=== PATIENT | female | born 1955 | race Caucasian/White ===

== ENCOUNTER 2016-09-20 16:25 | Emergency (ER) | payer OTHER, MEDICAID ==
[2016-09-20] MEDS ORDERED: NS 1,000 ML IV ONE (17:00)
--- NOTE | 2016-09-20 17:00 | EDPHY ---
H & P Stated Complaint: increased wandering and restless over past 2 weeks, hx dementia- HPI/ROS: HPI CHIEF COMPLAINT: Frontal lobe dementia, increased wondering, increased agitation HISTORY OF PRESENT ILLNESS: This patient very pleasant 61-year-old female she is followed outpatient by primary care doctor as well as neurologist or primary care doctor's at [facility], she presents emergency room with her and best friend at bedside for increased agitation and increased wondering leaving her house today. She left her house twice today. Her was unable to control her. She has frontal lobe dementia. She is followed by Neurology and primary care doctor. They brought her to the emergency room because there at a loss of what else to further due for her. In the emergency room she is demented , she has, cooperative. She does answer my questions but does not give a reliable answers. She denies any focal complaints. Past Medical History: For frontal lobe dementia, history of UTIs Past Surgical History: No recent surgical history Social History: Lives in [place], at bedside, best friend at bedside Family History: Noncontributory ROS REVIEW OF SYSTEMS: A comprehensive 10 point review of systems is otherwise negative aside from elements mentioned in the history of present illness. Exam Constitutional triage nursing summary reviewed, vital signs reviewed, awake/ alert. Frontal lobe dementia. Eyes normal conjunctivae and sclera, EOMI, PERRLA. HENT normal inspection, atraumatic, moist mucus membranes, no epistaxis, neck supple/ no meningismus, no raccoon eyes. Respiratory clear to auscultation bilaterally, normal breath sounds, no respiratory distress, no wheezing. Cardiovascular rate normal, regular rhythm, no murmur, no edema, distal pulses normal. Gastrointestinal soft, non-tender, no rebound, no guarding, normal bowel sounds, no distension, no pulsatile mass. Genitourinary no CVA tenderness. Musculoskeletal no midline vertebral tenderness, full range of motion, no calf swelling, no tenderness of extremities, no meningismus, good pulses, neurovascularly intact. Skin pink, warm, & dry, no rash, skin atraumatic. Neurologic awake and alert and oriented x1 at neurological baseline , moves all 4 extremities equally, motor intact, sensory intact, CN II-XII intact, normal cerebellar, normal vision, normal speech. Psychiatric normal mood/affect. Heme/Lymph/Immune no lymphadenopathy. Differential Diagnosis: Worsening frontal lobe dementia, agitation, electrolyte disturbance, dehydration, UTI Medical Decision Making: Plan for this patient check basic blood work including electrolytes, check urinalysis to make sure there is not exacerbating her agitation increased wondering in the setting on a frontal lobe dementia. Re-evaluation: 2011: Patient is resting comfortably here no acute distress. Did receive 1 mg p.o. Ativan. Blood work is reassuring, electrolytes reassuring. Urinalysis reassuring. Will outpatient be discharged. Case management did give resources to this family. They understand return emergency room if they have any worsening symptoms questions or concerns. Source: Patient - Personal History Current Tetanus/Diphtheria Vaccine: Unsure Current Tetanus Diphtheria and Acellular Pertussis (TDAP): Unsure - Medical/Surgical History Hx Asthma: No Hx Chronic Respiratory Disease: No Hx Diabetes: No Hx Cardiac Disease: No Hx Renal Disease: No Hx Cirrhosis: No Hx Alcoholism: No Hx HIV/AIDS: No Hx Splenectomy or Spleen Trauma: No Other PMH: Factor V, PE's, Dementia, HTN, Depression, Hypothyroid - Social History Smoking Status: Former smoker Constitutional: Initial Vital Signs Temperature (C) 36.5 C 09/20/16 16:39 Heart Rate 76 09/20/16 16:39 Respiratory Rate 16 09/20/16 16:39 Blood Pressure 152/65 H 09/20/16 16:39 O2 Sat (%) 98 09/20/16 16:39 O2 Delivery Mode Room Air Allergies/Adverse Reactions: No Known Allergies Allergy (Unverified 12/24/14 12:03) Home Medications: Medication Instructions Recorded Donepezil HCl [Aricept] 10 mg PO DAILY 12/24/14 Levothyroxine [Synthroid 75 mcg 75 mcg PO DAILY06 12/24/14 (*)] Metoprolol Succinate Xr [Toprol Xl 50 mg PO DAILY 12/24/14 50 mg (*)] Vilazodone HCl [Viibryd] 40 mg PO DAILY 12/24/14 Warfarin Sodium [Coumadin 3MG (*)] 3 mg PO DAILY 12/24/14 buPROPion SR [Wellbutrin 150mg SR 150 mg PO BID 12/24/14 (*)] Acetaminophen [Tylenol 325mg (*)] 325 - 650 mg PO Q6 PRN #60 tab 01/01/15 Docusate Sodium [Colace 100 MG (*)] 100 mg PO BID #60 cap 01/01/15 HYDROcodone/APAP 10325 [[place] 1 - 2 tab PO Q6 PRN #120 tab 01/01/15325 (*)] celeCOXIB [Celebrex (*)] 200 mg PO DAILY #20 cap 01/01/15 oxyCODONE IR [Oxycodone Ir (*)] 5 mg PO Q6 PRN #30 tab 01/01/15 Medical Decision Making - Data Points Laboratory Results: Laboratory Results 09/20/16 17:30 09/20/16 17:30 09/20/16 09/20/16 09/20/16 19:30 17:30 17:30 WBC 6.78 10^3/uL 10^3/uL (3.80-9.50) RBC 5.40 10^6/uL H 10^6/uL (4.18-5.33) Hgb 16.9 g/dL H g/dL (12.6-16.3) Hct 49.0 % H % (38.0-47.0) MCV 90.7 fL fL (81.5-99.8) MCH 31.3 pg pg (27.9-34.1) MCHC 34.5 g/dL g/dL (32.4-36.7) RDW 12.4 % % (11.5-15.2) Plt Count 189 10^3/uL 10^3/uL (150-400) MPV 11.6 fL fL (8.7-11.7) Neut % (Auto) 58.3 % % (39.3-74.2) Lymph % (Auto) 33.0 % % (15.0-45.0) Reynolds % (Auto) 5.6 % % (4.5-13.0) Eos % (Auto) 2.1 % % (0.6-7.6) Baso % (Auto) 0.9 % % (0.3-1.7) Nucleat RBC Rel Count 0.0 % % (0.0-0.2) Absolute Neuts (auto) 3.95 10^3/uL 10^3/uL (1.70-6.50) Absolute Lymphs (auto) 2.24 10^3/uL 10^3/uL (1.00-3.00) Absolute Monos (auto) 0.38 10^3/uL 10^3/uL (0.30-0.80) Absolute Eos (auto) 0.14 10^3/uL 10^3/uL (0.03-0.40) Absolute Basos (auto) 0.06 10^3/uL 10^3/uL (0.02-0.10) Absolute Nucleated RBC 0.00 10^3/uL 10^3/uL (0-0.01) Immature Gran % 0.1 % % (0.0-1.1) Immature Gran # 0.01 10^3/uL 10^3/uL (0.00-0.10) Sodium 143 mEq/L mEq/L (134-144) Potassium 4.3 mEq/L mEq/L (3.5-5.2) Chloride 105 mEq/L mEq/L (97-110) Carbon Dioxide 22 mEq/l mEq/l (22-31) Anion Gap 16 mEq/L mEq/L (8-16) BUN 13 mg/dL mg/dL (7-23) Creatinine 0.8 mg/dL mg/dL (0.6-1.0) Estimated GFR > 60 Glucose 85 mg/dL mg/dL (70-100) Calcium 10.1 mg/dL mg/dL (8.5-10.4) Specimen Hemolysis 103 Urine Color PALE YELLOW Urine Appearance CLEAR Urine pH 7.0 (5.0-7.5) Ur Specific [place] 1.002 (1.002-1.030) Urine Protein NEGATIVE (NEGATIVE) Urine Ketones NEGATIVE (NEGATIVE) Urine Blood NEGATIVE (NEGATIVE) Urine Nitrate NEGATIVE (NEGATIVE) Urine Bilirubin NEGATIVE (NEGATIVE) Urine Urobilinogen NEGATIVE EU EU (0.2-1.0) Ur Leukocyte Esterase NEGATIVE (NEGATIVE) Urine Glucose NEGATIVE (NEGATIVE) Medications Given: Discontinued Medications Sodium Chloride (Ns) 1,000 mls @ 0 mls/hr IV ONCE ONE; Wide Open PRN Reason: Protocol Stop: 09/20/16 17:01 Last Admin: 09/20/16 17:42 Dose: 1,000 mls Lorazepam (Ativan) 1 mg PO EDNOW ONE Stop: 09/20/16 18:23 Last Admin: 09/20/16 18:23 Dose: 1 mg Departure - Departure Disposition: Home, Routine, Self-Care Clinical Impression: Dementia Qualifiers: Dementia type: unspecified type Dementia behavioral disturbance: with behavioral disturbance Qualified Code(s): F03.91 - Unspecified dementia with behavioral disturbance Condition: Good Instructions: Dementia (ED) Referrals: Patient,NotPresent [Unknown] - As per Instructions
[2016-09-20 17:58] LABS: % IMMATURE GRANULYOCYTES 0.1 % (0.0-1.1); ABSOLUTE IMMATURE GRANULOCYTES 0.01 10^3/uL (0.00-0.10); ADD DIFF? NO; ADD MORPH? NO; ADD SCAN? NO; ATYPICAL LYMPHOCYTE FLAG 0 (0-99); FRAGMENT RBC FLAG 0 (0-99); HEMOGLOBIN 16.9 g/dL (12.6-16.3); LEFT SHIFT FLG 0 (0-99); LIPEMIA HEMOLYSIS FLAG 90 (0-99); MEAN CELL HEMOGLOBIN 31.3 pg (27.9-34.1); MEAN CELL HEMOGLOBIN CONCENTR. 34.5 g/dL (32.4-36.7); MEAN CELL VOLUME 90.7 fL (81.5-99.8); MEAN PLATELET VOLUME 11.6 fL (8.7-11.7); PLATELET CLUMPS FLAG 20 (0-99); PLATELET COUNT 189 10^3/uL (150-400); RED CELL DISTRIBUTION WIDTH 12.4 % (11.5-15.2)
[2016-09-20 18:06] LABS: ANION GAP 16 mEq/L (8-16); CALCIUM 10.1 mg/dL (8.5-10.4); CARBON DIOXIDE 22 mEq/l (22-31); CHLORIDE 105 mEq/L (97-110); CREATININE 0.8 mg/dL (0.6-1.0); GLOMERULAR FILTRATION RATE > 60; GLUCOSE 85 mg/dL (70-100); POTASSIUM 4.3 mEq/L (3.5-5.2); SODIUM 143 mEq/L (134-144); SPECIMEN HEMOLYSIS 103
[2016-09-20] MEDS ORDERED: LORazepam 1 MG TAB ONE (18:17)
[2016-09-20] MEDS ORDERED: LORazepam 1 MG TAB PO ONE (18:22)
[2016-09-20 19:51] LABS: COLOR PALE YELLOW; LEUKOCYTE ESTERASE,URINE NEGATIVE (NEGATIVE); NITRITE,URINE NEGATIVE (NEGATIVE)
[2016-09-20 20:51] VITALS: BP 192/120; PULSE 78; RESP 18; TEMP 98.2; O2SAT 95
== END 2016-09-20 20:52 | disposition home or self-care (01) ==
DX: F03.91 Unspecified dementia, unspecified severity, with behavioral disturbance (principal); I10 Essential (primary) hypertension; Z79.01 Long term (current) use of anticoagulants; Z87.891 Personal history of nicotine dependence